=== PATIENT | male | born 1995 | race African-American/Black ===

== ENCOUNTER 2017-10-02 16:11 | Emergency (ER) | payer OTHER, SELFPAY ==
--- NOTE | 2017-10-02 17:49 | EDPHYS ---
Physician Documentation [facility] Name: Lukasz Edwards Jr Age: 21 yrs Sex: Male : 1995 Arrival Date: 10/02/2017 Time: 16:16 Bed 7 Private MD: None, None ED Physician Zach Cordero HPI: 10/02 17:44 This 21 yrs old Black Male presents to ER via Ambulatory with complaints of fatigue . jr8 17:44 Patient stated that he works at [employer] and does a lot of heavy lifting. Stated that jr8 last night felt fatigued and sore everywhere. Has been drinking a lot of water. Stated that he has occasional numbness down both arms. Thinks he over exerted but wants to make sure he is ok . Severity of symptoms: At their worst the symptoms were mild in the emergency department the symptoms are unchanged. The patient has not experienced similar symptoms in the past. The patient has not recently seen a physician. Historical: - Allergies: 16:52 No Known Allergies; aj1 - Home Meds: 16:52 None [Active]; aj1 - PMHx: 16:52 Asthma; enlarged colon; aj1 - PSHx: 16:52 None; aj1 - Immunization history:: Flu vaccine is up to date. - Social history:: Smoking status: Patient uses tobacco products, smokes one pack cigarettes per day. - Ebola Screening: : Patient denies travel to an Ebola-affected area in the 21 days before illness onset. ROS: 17:44 Eyes: Negative for injury, pain, redness, and discharge, ENT: Negative for injury, jr8 pain, and discharge, Neck: Negative for injury, pain, and swelling, Cardiovascular: Negative for chest pain, palpitations, and edema, Respiratory: Negative for shortness of breath, cough, wheezing, and pleuritic chest pain, Abdomen/GI: Negative for abdominal pain, nausea, vomiting, diarrhea, and constipation, Back: Negative for injury and pain, Skin: Negative for injury, rash, and discoloration, Neuro: Negative for headache, weakness, numbness, tingling, and seizure. 17:44 Constitutional: Positive for fatigue. 17:44 MS/extremity: Positive for paresthesias, of the right arm and left arm. Exam: 17:44 Head/Face: Normocephalic, atraumatic. Eyes: Pupils equal round and reactive to light, jr8 extra-ocular motions intact. Lids and lashes normal. Conjunctiva and sclera are non-icteric and not injected. Cornea within normal limits. Periorbital areas with no swelling, redness, or edema. ENT: Nares patent. No nasal discharge, no septal abnormalities noted. Tympanic membranes are normal and external auditory canals are clear. Oropharynx with no redness, swelling, or masses, exudates, or evidence of obstruction, uvula midline. Mucous membranes moist. Neck: Trachea midline, no thyromegaly or masses palpated, and no cervical lymphadenopathy. Supple, full range of motion without nuchal rigidity, or vertebral point tenderness. No Meningismus. Cardiovascular: Regular rate and rhythm with a normal S1 and S2. No gallops, murmurs, or rubs. Normal PMI, no JVD. No pulse deficits. Respiratory: Lungs have equal breath sounds bilaterally, clear to auscultation and percussion. No rales, rhonchi or wheezes noted. No increased work of breathing, no retractions or nasal flaring. Abdomen/GI: Soft, non-tender, with normal bowel sounds. No distension or tympany. No guarding or rebound. No evidence of tenderness throughout. Skin: Warm, dry with normal turgor. Normal color with no rashes, no lesions, and no evidence of cellulitis. MS/ Extremity: Pulses equal, no cyanosis. Neurovascular intact. Full, normal range of motion. Neuro: Awake and alert, GCS 15, oriented to person, place, time, and situation. Cranial nerves II-XII grossly intact. Motor strength 5/5 in all extremities. Sensory grossly intact. Cerebellar exam normal. Normal gait. 17:44 Back: pain, that is moderate, of the left trapezius and right trapezius, ROM is normal, normal spinal alignment noted. Vital Signs: 16:52 BP 144 / 85; Pulse 76; Resp 18; Temp 97.9; Pulse Ox 99% on R/A; Weight 112.04 kg; aj1 Height 5 ft. 4 in. (162.56 cm); Pain 9/10; 17:50 BP 125 / 61; Pulse 73; Resp 17; Pulse Ox 100% on R/A; tw2 16:52 Body Mass Index 42.40 (112.04 kg, 162.56 cm) aj1 MDM: 17:19 Patient medically screened. jr8 17:44 Data reviewed: vital signs, nurses notes, lab test result(s), and as a result, I will jr8 discharge patient. Data interpreted: Pulse oximetry: on room air is 99 %. Interpretation: normal. Counseling: I had a detailed discussion with the patient and/or guardian regarding: the historical points, exam findings, and any diagnostic results supporting the discharge/admit diagnosis, lab results, the need for outpatient follow up, a family practitioner, to return to the emergency department if symptoms worsen or persist or if there are any questions or concerns that arise at home. ED course: Patient did not want blood work done. Ran urine to make sure there was not blood in there to indicate myoglobin and rhabdo. All was negative. Will send home on muscle relaxant and ibuprofen to help with muscle pain . 10/02 17:52 Order name: Urine Dipstick--Ancillary (enter results) [facility] 10/02 17:44 Order name: Urine Dipstick-Ancillary (obtain specimen); Complete Time: 17:45 jr Administered Medications: No medications were administered Disposition: 10/02/17 17:48 Discharged to Home. Impression: Muscle spasm of back. - Condition is Stable. - Discharge Instructions: Back Exercises, Llkj-yx-Spds, Heat Therapy. - Prescriptions for Ibuprofen 800 mg Oral Tablet - take 1 tablet by ORAL route every 12 hours As needed take with food; 20 tablet. Cyclobenzaprine 10 mg Oral Tablet - take 1 tablet by ORAL route every 8 hours As needed; 30 tablet. - Medication Reconciliation Form, Thank You Letter, Antibiotic Education, Prescription Opioid Use, Work release form form. - Follow up: Private Physician; When: 5 - 6 days; Reason: Recheck today's complaints, Continuance of care, Re-evaluation by your physician. - Problem is new. - Symptoms have improved. Addendum: 10/04/2017 14:47 Co-signature as Attending Physician, Zach Cordero MD I agree with the assessment and w a plan of care. Signatures: Dispatcher [employer] EDW[facility] Cindy Davidson RN RN aj1 Hemal Brandon PA PA jr8 Nolvia Garrison RN RN tw2 Zach Cordero MD MD co Corrections: (The following items were deleted from the chart) 10/02 17:55 17:48 10/02/2017 17:48 Discharged to Home. Impression: Muscle spasm of back. Condition tw2 is Stable. Forms are Work release form, Medication Reconciliation Form, Thank You Letter, Antibiotic Education, Prescription Opioid Use. Follow up: Private Physician; When: 5 - 6 days; Reason: Recheck today's complaints, Continuance of care, Re-evaluation by your physician. Problem is new. Symptoms have improved. jr8
--- NOTE | 2017-10-02 17:49 | ER ---
Nurse's Notes [facility] Name: Lukasz Edwards Jr Age: 21 yrs Sex: Male : 1995 Arrival Date: 10/02/2017 Time: 16:16 Bed 7 Private MD: None, None Diagnosis: Muscle spasm of back Presentation: 10/02 16:49 Presenting complaint: Patient states: "I've been having body aches, sweating and aj1 diarrhea since last night and both of my hands have been going numb" Reports fever last night,nausea, denies vomiting. Transition of care: patient was not received from another setting of care. Onset of symptoms was October 01, 2017. Risk Assessment: Do you want to hurt yourself or someone else? Patient reports no desire to harm self or others. Initial Sepsis Screen: Does the patient meet any 2 criteria? No. Patient's initial sepsis screen is negative. Does the patient have a suspected source of infection? No. Patient's initial sepsis screen is negative. Care prior to arrival: None. 16:49 Method Of Arrival: [facility] 16:49 Acuity: CHELA 4 aj1 Triage Assessment: 16:52 General: Appears in no apparent distress. uncomfortable, Behavior is calm, cooperative, aj1 appropriate for age. Pain: Complains of pain in generalized body aches Pain does not radiate. Pain currently is 9 out of 10 on a pain scale. Quality of pain is described as aching. Derm: Skin is normal. Historical: - Allergies: 16:52 No Known Allergies; aj1 - Home Meds: 16:52 None [Active]; aj1 - PMHx: 16:52 Asthma; enlarged colon; aj1 - PSHx: 16:52 None; aj1 - Immunization history:: Flu vaccine is up to date. - Social history:: Smoking status: Patient uses tobacco products, smokes one pack cigarettes per day. - Ebola Screening: : Patient denies travel to an Ebola-affected area in the 21 days before illness onset. Screenin:43 Abuse screen: Denies threats or abuse. Nutritional screening: No deficits noted. tw2 Tuberculosis screening: No symptoms or risk factors identified. Fall Risk None identified. Assessment: 17:39 General: Appears in no apparent distress. Pain: Denies pain. Neuro: Level of tw2 Consciousness is awake, alert, obeys commands, Oriented to person, place, time, situation. Cardiovascular: Denies chest pain, shortness of breath, Heart tones S1 S2 Patient's skin is warm and dry. Respiratory: Airway is patent Respiratory effort is even, unlabored, Respiratory pattern is regular, symmetrical, Breath sounds are clear bilaterally. GI: Abdomen is round non-distended, obese, Bowel sounds present X 4 quads. Reports diarrhea. : No signs and/or symptoms were reported regarding the genitourinary system. EENT: No signs and/or symptoms were reported regarding the EENT system. Derm: Skin is intact, is healthy with good turgor. Musculoskeletal: Range of motion: intact in all extremities. 17:50 Reassessment: Patient appears in no apparent distress at this time. No changes from tw2 previously documented assessment. Patient and/or family updated on plan of care and expected duration. Pain level reassessed. Patient is alert, oriented x 3, equal unlabored respirations, skin warm/dry/pink. Vital Signs: 16:52 BP 144 / 85; Pulse 76; Resp 18; Temp 97.9; Pulse Ox 99% on R/A; Weight 112.04 kg; aj1 Height 5 ft. 4 in. (162.56 cm); Pain 9/10; 17:50 BP 125 / 61; Pulse 73; Resp 17; Pulse Ox 100% on R/A; tw2 16:52 Body Mass Index 42.40 (112.04 kg, 162.56 cm) aj1 ED Course: 16:16 Patient arrived in ED. sb2 16:16 None, None is Private Physician. sb2 16:52 Triage completed. aj1 16:52 Arm band placed on Patient placed in waiting room, Patient notified of wait time. aj1 17:19 Hemal Brandon PA is PHCP. jr8 17:19 Zach Cordero MD is Attending Physician. jr8 17:38 Nolvia Garrison, MAISHA is Primary Nurse. tw2 17:40 Bed in low position. Call light in reach. Pulse ox on. NIBP on. tw2 17:43 No provider procedures requiring assistance completed. tw2 17:55 Patient did not have IV access during this emergency room visit. tw2 Administered Medications: No medications were administered Outcome: 17:48 Discharge ordered by . jr8 17:54 Discharged to home ambulatory, with significant other. tw2 17:54 Condition: stable 17:54 Discharge instructions given to patient, significant other, Instructed on discharge instructions, follow up and referral plans. no drinking with medication, no driving heavy equipment, medication usage, Demonstrated understanding of instructions, follow-up care, medications, Prescriptions given X 2. 17:55 Patient left the ED. tw2 Signatures: Cindy Davidson RN RN aj1 Hemal Brandon PA PA jr8 Nolvia Garrison RN RN tw2 Wendi Olsen sb2
[2017-10-02 17:59] LABS: Urine Blood NEGATIVE (NEG); Urine Glucose NEGATIVE (NEG); Urine Protein NEGATIVE (NEG)
== END 2017-10-02 17:55 | disposition home or self-care (01) ==
LOC: ER 16:11
DX: M62.830 Muscle spasm of back (principal); J45.909 Unspecified asthma, uncomplicated; F17.210 Nicotine dependence, cigarettes, uncomplicated
CPT/HCPCS: 81003; 99283

== ENCOUNTER 2018-01-08 21:30 | Emergency (ER) | payer SELFPAY ==
[2018-01-08] MEDS ORDERED: DEXAMETHASONE 4 MG TAB ONE (22:37)
[2018-01-08] MEDS ORDERED: ALBUTEROL 2.5 MG/3 ML NEB SOL ONE (22:38)
--- NOTE | 2018-01-08 23:04 | EDPHYS ---
Physician Documentation [facility] Name: Lukasz Edwards Jr Age: 22 yrs Sex: Male : 1995 Arrival Date: 01/08/2018 Time: 21:33 Bed 4 Private MD: Jacquelin Felder H ED Physician Amos Monet HPI: 01/08 22:32 This 22 yrs old Black Male presents to ER via Ambulatory with complaints of Cough, snw Breathing Difficulty. 22:32 The patient or guardian reports airway noise, cough, difficulty breathing. Onset: The snw symptoms/episode began/occurred suddenly, last night. Severity of symptoms: At their worst the symptoms were moderate. Modifying factors: The symptoms are alleviated by nothing, the symptoms are aggravated by exertion. Associated signs and symptoms: The patient has no apparent associated signs or symptoms. history of asthma as a child, no bronchodilator use as an adult. The patient has not recently seen a physician. Historical: - Allergies: 21:48 No Known Allergies; aj1 - Home Meds: 21:48 None [Active]; aj1 - PMHx: 21:48 Asthma; enlarged colon; aj1 - PSHx: 21:48 None; aj1 - Immunization history:: Flu vaccine is up to date. - Social history:: Smoking status: Patient uses tobacco products, smokes one-half pack cigarettes per day. - Ebola Screening: : Patient denies travel to an Ebola-affected area in the 21 days before illness onset. ROS: 22:31 Constitutional: Negative for fever, chills, and weight loss, Eyes: Negative for injury, snw pain, redness, and discharge, ENT: Negative for injury, pain, and discharge, Neck: Negative for injury, pain, and swelling, Cardiovascular: Negative for chest pain, palpitations, and edema, Abdomen/GI: Negative for abdominal pain, nausea, vomiting, diarrhea, and constipation, Back: Negative for injury and pain, : Negative for injury, bleeding, discharge, and swelling, MS/Extremity: Negative for injury and deformity, Skin: Negative for injury, rash, and discoloration, Neuro: Negative for headache, weakness, numbness, tingling, and seizure, Psych: Negative for depression, anxiety, suicide ideation, homicidal ideation, and hallucinations. 22:31 Respiratory: Positive for cough, dyspnea on exertion, shortness of breath. Exam: 22:30 Constitutional: This is a well developed, obese patient who is awake, alert, and in no snw acute distress. Head/Face: Normocephalic, atraumatic. Eyes: Pupils equal round and reactive to light, extra-ocular motions intact. Lids and lashes normal. Conjunctiva and sclera are non-icteric and not injected. Cornea within normal limits. Periorbital areas with no swelling, redness, or edema. ENT: Nares patent. No nasal discharge, no septal abnormalities noted. Tympanic membranes are normal and external auditory canals are clear. Oropharynx with no redness, swelling, or masses, exudates, or evidence of obstruction, uvula midline. Mucous membranes moist. Neck: Trachea midline, no thyromegaly or masses palpated, and no cervical lymphadenopathy. Supple, full range of motion without nuchal rigidity, or vertebral point tenderness. No Meningismus. Chest/axilla: Normal chest wall appearance and motion. Nontender with no deformity. No lesions are appreciated. Cardiovascular: tachycardic rate and rhythm with a normal S1 and S2. No gallops, murmurs, or rubs. Normal PMI, no JVD. No pulse deficits. Abdomen/GI: Soft, non-tender, with normal bowel sounds. No distension or tympany. No guarding or rebound. No evidence of tenderness throughout. Back: No spinal tenderness. No costovertebral tenderness. Full range of motion. Skin: Warm, dry with normal turgor. Normal color with no rashes, no lesions, and no evidence of cellulitis. MS/ Extremity: Pulses equal, no cyanosis. Neurovascular intact. Full, normal range of motion. Neuro: Awake and alert, GCS 15, oriented to person, place, time, and situation. Cranial nerves II-XII grossly intact. Motor strength 5/5 in all extremities. Sensory grossly intact. Cerebellar exam normal. Normal gait. 22:30 Respiratory: the patient does not display signs of respiratory distress, Respirations: shallow respirations, tachypnea, Breath sounds: wheezing: expiratory that is moderate, is heard diffusely, tight cough. Vital Signs: 21:48 BP 162 / 82; Pulse 102; Resp 20; Temp 99.2(O); Pulse Ox 96% on R/A; Weight 120.2 kg aj1 (R); Height 5 ft. 4 in. (162.56 cm) (R); Pain 0/10; 22:22 BP 160 / 87; Pulse 110; Resp 18 S; Pulse Ox 96% on R/A; bb 23:05 BP 142 / 77; Pulse 97; Resp 18 S; Pulse Ox 97% on R/A; bb 21:48 Body Mass Index 45.49 (120.20 kg, 162.56 cm) aj1 MDM: 22:19 Patient medically screened. snw 23:07 Data reviewed: vital signs, nurses notes. Data interpreted: Pulse oximetry: on room air snw is 97 %. Interpretation: normal. Counseling: I had a detailed discussion with the patient and/or guardian regarding: the historical points, exam findings, and any diagnostic results supporting the discharge/admit diagnosis, the presence of at least one elevated blood pressure reading (>120/80) during this emergency department visit, the need for outpatient follow up, to return to the emergency department if symptoms worsen or persist or if there are any questions or concerns that arise at home. Response to treatment: the patient's symptoms have markedly improved after treatment. Special discussion: I have referred the patient to see his PCP for further evaluation of high blood pressure. Based on the history and exam findings, there is no indication for further emergent testing or inpatient evaluation. I discussed with the patient/guardian the need to see the primary care provider for further evaluation of the symptoms. Administered Medications: 22:30 Drug: Decadron 8 mg Route: PO; cc3 23:16 Follow up: Response: Marked relief of symptoms bb 22:35 Drug: Albuterol 2.5 mg Route: Inhalation; cc3 23:16 Follow up: Response: Marked relief of symptoms bb Disposition: 01/08/18 23:04 Discharged to Home. Impression: Asthma. - Condition is Stable. - Discharge Instructions: Asthma, Adult. - Prescriptions for Prednisone 20 mg Oral Tablet - take 2 tablet by ORAL route once daily for 5 days; 10 tablet. Albuterol Sulfate 90 mcg/actuation - inhale 1-2 puff by INHALATION route every 4-6 hours; 1 Inhaler. - Medication Reconciliation Form, Thank You Letter, Antibiotic Education, Prescription Opioid Use form. Addendum: 01/11/2018 17:27 Co-signature as Attending Physician, Amos Monet MD. g s Signatures: Cindy Davidson, RN RN aj1 Alicja Escobedo, FLAME BRAZING MACHINE OPERATOR-C FLAME BRAZING MACHINE OPERATOR-Csnw Chitra Huff, RN Amos Elena MD MD gs Cordel, Charlene cc3 Corrections: (The following items were deleted from the chart) 01/08 23:16 23:04 01/08/2018 23:04 Discharged to Home. Impression: Asthma. Condition is Stable. bb Forms are Medication Reconciliation Form, Thank You Letter, Antibiotic Education, Prescription Opioid Use. Follow up: Private Physician; When: 1 - 2 days; Reason: Recheck today's complaints, Continuance of care, Re-evaluation by your physician. Follow up: Emergency Department; When: As needed; Reason: Worsening of condition. snw
--- NOTE | 2018-01-08 23:04 | ER ---
Nurse's Notes [facility] Name: Lukasz Edwards Jr Age: 22 yrs Sex: Male : 1995 Arrival Date: 01/08/2018 Time: 21:33 Bed 4 Private MD: Jacquelin Felder H Diagnosis: Asthma Presentation: 01/08 21:47 Presenting complaint: Patient states: He has been having a productive cough since aj1 Saturday. Reports shortness of breath on exertion. Denies fever, chills. Denies N/V/D. Transition of care: patient was not received from another setting of care. Onset of symptoms was December 2017. Risk Assessment: Do you want to hurt yourself or someone else? Patient reports no desire to harm self or others. Initial Sepsis Screen: Does the patient meet any 2 criteria? HR > 90 bpm. No. Patient's initial sepsis screen is negative. Does the patient have a suspected source of infection? Yes: Productive cough/pneumonia. Care prior to arrival: None. 21:47 Method Of Arrival: Ambulatory aj1 21:47 Acuity: CHELA 4 aj1 Triage Assessment: 21:48 General: Appears in no apparent distress. comfortable, Behavior is calm, cooperative, aj1 appropriate for age. Pain: Denies pain. EENT: Reports nasal congestion nasal discharge. Neuro: Level of Consciousness is awake, alert, obeys commands, Speech is normal. Cardiovascular: Patient's skin is warm and dry. Respiratory: Reports shortness of breath on exertion Airway is patent Respiratory effort is even, unlabored, Respiratory pattern is regular, symmetrical, Breath sounds are clear bilaterally. Onset: The symptoms/episode began/occurred 3 days ago, the patient has mild shortness of breath. Historical: - Allergies: 21:48 No Known Allergies; aj1 - Home Meds: 21:48 None [Active]; aj1 - PMHx: 21:48 Asthma; enlarged colon; aj1 - PSHx: 21:48 None; aj1 - Immunization history:: Flu vaccine is up to date. - Social history:: Smoking status: Patient uses tobacco products, smokes one-half pack cigarettes per day. - Ebola Screening: : Patient denies travel to an Ebola-affected area in the 21 days before illness onset. Screenin:22 Abuse screen: Denies threats or abuse. Nutritional screening: No deficits noted. bb Tuberculosis screening: No symptoms or risk factors identified. Fall Risk None identified. Assessment: 22:22 General: Appears in no apparent distress. obese, Behavior is calm, cooperative. Neuro: bb Level of Consciousness is awake, alert, obeys commands, Oriented to person, place, time, situation. Cardiovascular: Heart tones S1 S2 present Capillary refill < 3 seconds Patient's skin is warm and dry. Rhythm is sinus tachycardia. Respiratory: Reports shortness of breath cough that is persistent Airway is patent Respiratory effort is even, unlabored, Respiratory pattern is regular, Breath sounds are clear bilaterally. GI: No signs and/or symptoms were reported involving the gastrointestinal system. Derm: Skin is dry, Skin is normal, Skin temperature is warm. Musculoskeletal: Circulation, motion, and sensation intact. 23:04 Reassessment: Patient and/or family updated on plan of care and expected duration. Pain bb level reassessed. Patient is alert, oriented x 3, equal unlabored respirations, skin warm/dry/pink. pt states he is feeling better after neb tx bilateral breath sounds clear. Vital Signs: 21:48 BP 162 / 82; Pulse 102; Resp 20; Temp 99.2(O); Pulse Ox 96% on R/A; Weight 120.2 kg aj1 (R); Height 5 ft. 4 in. (162.56 cm) (R); Pain 0/10; 22:22 BP 160 / 87; Pulse 110; Resp 18 S; Pulse Ox 96% on R/A; bb 23:05 BP 142 / 77; Pulse 97; Resp 18 S; Pulse Ox 97% on R/A; bb 21:48 Body Mass Index 45.49 (120.20 kg, 162.56 cm) aj1 ED Course: 21:33 Patient arrived in ED. es 21:34 Jacquelin Felder MD is Private Physician. es 21:48 Triage completed. aj1 21:48 Arm band placed on Patient placed in waiting room. aj1 22:18 Alic[facility] Escobedo [facility]C [facility] snw 22:18 Amos Monet MD is Attending Physician. snw 22:22 Patient has correct armband on for positive identification. Bed in low position. Call bb light in reach. Side rails up X 1. Adult w/ patient. Pulse ox on. NIBP on. 23:04 Chitra Huff, RN is Primary Nurse. bb 23:15 No provider procedures requiring assistance completed. Patient did not have IV access bb during this emergency room visit. Administered Medications: 22:30 Drug: Decadron 8 mg Route: PO; cc3 23:16 Follow up: Response: Marked relief of symptoms bb 22:35 Drug: Albuterol 2.5 mg Route: Inhalation; cc3 23:16 Follow up: Response: Marked relief of symptoms bb Outcome: 23:04 Discharge ordered by . patricio 23:15 Discharged to home ambulatory, with family. bb 23:15 Condition: stable 23:15 Discharge instructions given to patient, Instructed on discharge instructions, follow up and referral plans. medication usage, Demonstrated understanding of instructions, follow-up care, medications, Prescriptions given X 2. 23:16 Patient left the ED. bb Signatures: Cindy Davidson, RN RN aj1 Alicja Escobedo, WINDOW CUTTER-C WINDOW CUTTER-Csnw Luzma Jseus Brenda, RN RN bb Julia Mahajan cc3
== END 2018-01-08 23:16 | disposition home or self-care (01) ==
LOC: ER 21:30
DX: J45.909 Unspecified asthma, uncomplicated (principal); F17.210 Nicotine dependence, cigarettes, uncomplicated
CPT/HCPCS: 99284

== ENCOUNTER 2018-01-21 08:21 | Emergency (ER) | payer SELFPAY ==
--- NOTE | 2018-01-21 08:57 | ER ---
Nurse's Notes [facility] Name: Lukasz Edwards Jr Age: 22 yrs Sex: Male : 1995 Arrival Date: 01/21/2018 Time: 08:25 Bed 18 Private MD: Diagnosis: Cellulitis and abscess of mouth Presentation: 01/21 08:40 Presenting complaint: Patient states: WISDOM TEETH PAIN x5 DAYS. Transition of care: bp patient was not received from another setting of care. Onset of symptoms was January 16, 2018. Risk Assessment: Do you want to hurt yourself or someone else? Patient reports no desire to harm self or others. Initial Sepsis Screen: Does the patient meet any 2 criteria? No. Patient's initial sepsis screen is negative. Does the patient have a suspected source of infection? No. Patient's initial sepsis screen is negative. Care prior to arrival: None. 08:40 Method Of Arrival: Ambulatory bp 08:40 Acuity: CHELA 5 bp Triage Assessment: 08:41 General: Appears in no apparent distress. uncomfortable, obese, Behavior is calm, bp cooperative, appropriate for age. Pain: Complains of pain in mouth. Historical: - Allergies: 08:41 No Known Allergies; bp - Home Meds: 08:41 None [Active]; bp - PMHx: 08:41 Asthma; enlarged colon; bp - Immunization history:: Adult Immunizations up to date. - Social history:: Smoking status: Patient uses tobacco products, smokes one pack cigarettes per day. - Ebola Screening: : Patient negative for fever greater than or equal to 101.5 degrees Fahrenheit, and additional compatible Ebola Virus Disease symptoms Patient denies exposure to infectious person Patient denies travel to an Ebola-affected area in the 21 days before illness onset No symptoms or risks identified at this time. Screenin:00 Abuse screen: Denies threats or abuse. Denies injuries from another. Nutritional ch screening: No deficits noted. Tuberculosis screening: No symptoms or risk factors identified. Fall Risk None identified. Assessment: 09:00 General: Appears in no apparent distress. comfortable, Behavior is calm, cooperative, ch appropriate for age. 09:00 Pain: Complains of pain in right buccal mucosa and left buccal mucosa and mouth Pain ch currently is 7 out of 10 on a pain scale. Pain began gradually. Neuro: No deficits noted. Level of Consciousness is awake, alert, obeys commands, Oriented to person, place, time, situation. Respiratory: No deficits noted. GI: No signs and/or symptoms were reported involving the gastrointestinal system. EENT: Oral mucosa is moist. pt has slight swelling of cristiana cheeks. Reports pain in mouth, right jaw and left jaw. Derm: No signs and/or symptoms reported regarding the dermatologic system. Musculoskeletal: No signs and/or symptoms reported regarding the musculoskeletal system. Capillary refill < 3 seconds, in bilateral fingers. toes. 10:00 Reassessment: Patient appears in no apparent distress at this time. Patient and/or ch family updated on plan of care and expected duration. Pain level reassessed. Patient is alert, oriented x 3, equal unlabored respirations, skin warm/dry/pink. 12:07 Pain:. ch Vital Signs: 08:41 BP 125 / 68; Pulse 68; Resp 16; Temp 97.6; Pulse Ox 100% ; Weight 129.27 kg; Height 5 bp ft. 4 in. (162.56 cm); 10:00 BP 136 / 68; Pulse 71; Resp 16; Temp 98.3; Pulse Ox 99% on R/A; Pain 7/10; ch 08:41 Body Mass Index 48.92 (129.27 kg, 162.56 cm) bp ED Course: 08:25 Patient arrived in ED. rg4 08:40 Triage completed. bp 08:41 Arm band placed on. bp 08:45 Mary Ann Tom FNP-C is PHCP. kb 08:45 Amos Monet MD is Attending Physician. kb 09:00 No apparent distress. Resting quietly. ch 09:00 Patient has correct armband on for positive identification. Bed in low position. Call light in reach. Adult w/ patient. 09:00 No provider procedures requiring assistance completed. Patient did not have IV access ch during this emergency room visit. 09:49 Karuna Bailey, RN is Primary Nurse. Administered Medications: 09:50 Drug: TORadol 60 mg Route: IM; Site: right gluteus; ch 10:05 Follow up: Response: No adverse reaction 09:50 Drug: Clindamycin 300 mg Route: PO; ch 10:05 Follow up: Response: No adverse reaction ch Outcome: 08:56 Discharge ordered by . kb 10:00 Discharged to home ambulatory, with family. 10:00 Condition: improved 10:00 Discharge instructions given to patient, Instructed on discharge instructions, follow up and referral plans. medication usage, Demonstrated understanding of instructions, follow-up care, medications, Prescriptions given X 1. 10:09 Patient left the ED. Signatures: Mary Ann Tom, CARO-Karuna Renteria RN RN Dayna Knott 4 Wei Edward RN RN bp Corrections: (The following items were deleted from the chart) 12:08 12:07 General: Appears in no apparent distress. comfortable, Behavior is calm, ch cooperative, appropriate for age, ch
--- NOTE | 2018-01-21 08:57 | EDPHYS ---
Physician Documentation [facility] Name: Lukasz Edwards Jr Age: 22 yrs Sex: Male : 1995 Arrival Date: 01/21/2018 Time: 08:25 Bed 18 Private MD: ED Physician Amos Monet HPI: 01/21 08:55 This 22 yrs old Black Male presents to ER via Ambulatory with complaints of Jaw Pain, kb Facial Swelling. 08:55 The problem is located in the left buccal mucosa and right buccal mucosa. kb 08:55 The patient presents with pain, redness, swelling. Onset: The symptoms/episode kb began/occurred 5 day(s) ago. Duration: The symptoms are continuous. Modifying factors: The symptoms are alleviated by nothing, the symptoms are aggravated by nothing. Associated signs and symptoms: Pertinent positives: pain, redness in area, swelling, Pertinent negatives: anorexia, chills, dysphagia, fever, inability to eat, nausea, vomiting. Severity of symptoms: At their worst the symptoms were moderate, in the emergency department the symptoms are unchanged. The patient has not experienced similar symptoms in the past. The patient has not recently seen a physician. Historical: - Allergies: 08:41 No Known Allergies; bp - Home Meds: 08:41 None [Active]; bp - PMHx: 08:41 Asthma; enlarged colon; bp - Immunization history:: Adult Immunizations up to date. - Social history:: Smoking status: Patient uses tobacco products, smokes one pack cigarettes per day. - Ebola Screening: : Patient negative for fever greater than or equal to 101.5 degrees Fahrenheit, and additional compatible Ebola Virus Disease symptoms Patient denies exposure to infectious person Patient denies travel to an Ebola-affected area in the 21 days before illness onset No symptoms or risks identified at this time. ROS: 08:54 Constitutional: Negative for fever, chills, and weight loss, Cardiovascular: Negative kb for chest pain, palpitations, and edema, Respiratory: Negative for shortness of breath, cough, wheezing, and pleuritic chest pain, Abdomen/GI: Negative for abdominal pain, nausea, vomiting, diarrhea, and constipation, MS/Extremity: Negative for injury and deformity, Skin: Negative for injury, rash, and discoloration, Neuro: Negative for headache, weakness, numbness, tingling, and seizure. 08:54 ENT: Positive for dental pain, Gum pain Exam: 08:54 Constitutional: This is a well developed, well nourished patient who is awake, alert, kb and in no acute distress. Head/Face: Normocephalic, atraumatic. Chest/axilla: Normal chest wall appearance and motion. Nontender with no deformity. No lesions are appreciated. Cardiovascular: Regular rate and rhythm with a normal S1 and S2. No gallops, murmurs, or rubs. Normal PMI, no JVD. No pulse deficits. Respiratory: Lungs have equal breath sounds bilaterally, clear to auscultation and percussion. No rales, rhonchi or wheezes noted. No increased work of breathing, no retractions or nasal flaring. Abdomen/GI: Soft, non-tender, with normal bowel sounds. No distension or tympany. No guarding or rebound. No evidence of tenderness throughout. Skin: Warm, dry with normal turgor. Normal color with no rashes, no lesions, and no evidence of cellulitis. MS/ Extremity: Pulses equal, no cyanosis. Neurovascular intact. Full, normal range of motion. Neuro: Awake and alert, GCS 15, oriented to person, place, time, and situation. Cranial nerves II-XII grossly intact. Motor strength 5/5 in all extremities. Sensory grossly intact. Cerebellar exam normal. Normal gait. 08:54 ENT: Dental exam: cellulitis, pain. Vital Signs: 08:41 BP 125 / 68; Pulse 68; Resp 16; Temp 97.6; Pulse Ox 100% ; Weight 129.27 kg; Height 5 bp ft. 4 in. (162.56 cm); 10:00 BP 136 / 68; Pulse 71; Resp 16; Temp 98.3; Pulse Ox 99% on R/A; Pain 7/10; ch 08:41 Body Mass Index 48.92 (129.27 kg, 162.56 cm) bp MDM: 08:46 Patient medically screened. kb 08:54 Data reviewed: vital signs, nurses notes. Data interpreted: Pulse oximetry: on room air kb is 100 %. Interpretation: normal. Counseling: I had a detailed discussion with the patient and/or guardian regarding: the historical points, exam findings, and any diagnostic results supporting the discharge/admit diagnosis, the need for outpatient follow up, a dentist, to return to the emergency department if symptoms worsen or persist or if there are any questions or concerns that arise at home. Administered Medications: 09:50 Drug: TORadol 60 mg Route: IM; Site: right gluteus; 10:05 Follow up: Response: No adverse reaction 09:50 Drug: Clindamycin 300 mg Route: PO; 10:05 Follow up: Response: No adverse reaction Disposition: 01/21/18 08:56 Discharged to Home. Impression: Cellulitis and abscess of mouth. - Condition is Stable. - Discharge Instructions: Dental Pain, [id number], Dental Abscess, [id number]. - Prescriptions for Clindamycin HCl 300 mg Oral Capsule - take 1 capsule by ORAL route every 6 hours for 7 days; 28 capsule. - Medication Reconciliation Form, Thank You Letter, Antibiotic Education, Prescription Opioid Use, Work release form form. - Follow up: Emergency Department; When: As needed; Reason: Worsening of condition. Follow up: Private Physician; When: 2 - 3 days; Reason: Recheck today's complaints, Continuance of care, Re-evaluation by your physician. Addendum: 01/22/2018 18:05 Co-signature as Attending Physician, Amos Monet MD. g s Signatures: Mary Ann Tom, HEAD LOADER-C HEAD LOADER-Karuna Boothe RN RN Amos Monet MD MD Wei Edward RN RN bp Corrections: (The following items were deleted from the chart) 01/21 10:09 08:56 01/21/2018 08:56 Discharged to Home. Impression: Cellulitis and abscess of mouth. Condition is Stable. Forms are Medication Reconciliation Form, Thank You Letter, Antibiotic Education, Prescription Opioid Use. Follow up: Emergency Department; When: As needed; Reason: Worsening of condition. Follow up: Private Physician; When: 2 - 3 days; Reason: Recheck today's complaints, Continuance of care, Re-evaluation by your physician. kb
[2018-01-21] MEDS ORDERED: KETOROLAC 30 MG/ML INJ ONE (09:58)
[2018-01-21] MEDS ORDERED: CLINDAMYCIN HCL 150 MG CAP ONE (09:58)
== END 2018-01-21 10:09 | disposition home or self-care (01) ==
LOC: ER 08:21
DX: K12.2 Cellulitis and abscess of mouth (principal); F17.210 Nicotine dependence, cigarettes, uncomplicated
CPT/HCPCS: 96372; 99283

== ENCOUNTER 2023-03-18 06:15 | Emergency (ER) | payer SELFPAY ==
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
[2023-03-18 10:48] VITALS: TEMP 98.7
[2023-03-18 10:52] VITALS: BP 134/93; O2SAT 97
== END 2023-03-18 10:43 | disposition home or self-care (01) ==
LOC: ER 06:15
DX: S01.511A Laceration without foreign body of lip, initial encounter (principal); M54.2 Cervicalgia; M25.511 Pain in right shoulder
CPT/HCPCS: 70450; 71250; 72125; 93005; 99284

== ENCOUNTER → 2023-05-01 | Emergency (ER) | payer SELFPAY ==
[~2023-05-01] MED LIST: KETOROLAC 30 MG/ML INJ ONE; MAGNES/ALUMIN/SIMET 30ML UCUP ONE
[2023-05-01 12:14] LABS: Absolute Lymphocytes (CBC) 1.4 K/uL (0.7-4.9); Hematocrit 44.9 % (39.6-49.0); Lymphocytes % 20.9 % (15.3-44.8); MPV 7.4 fL (7.6-11.3); Platelets 282 thou/uL (152-406)
--- NOTE | 2023-05-01 12:17 | RAD REPORT ---
EXAM DESCRIPTION: [place] Single View05/01/2023 12:04 pm CLINICAL HISTORY: CHEST PAIN COMPARISON: Chest Single View dated 06/13/2016; Chest Single View dated 06/11/2016; Chest Single View d ated 06/10/2016 TECHNIQUE: Portable AP view of the chest. FINDINGS: The lungs are clear. No pneumothorax or effusion. The cardiomediastinal contours are unch anged. IMPRESSION: No acute cardiopulmonary process.
[2023-05-01 12:33] LABS: Albumin 3.6 g/dL (3.4-5.0); Bilirubin Direct 0.2 mg/dL (0-0.2); Bilirubin Indirect, Calculated 0.3 mg/dL (0.2-0.8); Bilirubin Total 0.5 mg/dL (0.2-1.0); Magnesium 1.9 mg/dL (1.6-2.4); Potassium 3.7 mEq/L (3.5-5.1); Protein, Total 7.3 g/dL (6.4-8.2); SARS-CoV-2 Antigen Rapid Res Negative (Negative); Troponin High Sensitivity 6.6 pg/mL (<58.9)
--- NOTE | 2023-05-01 14:00 | EDPHYS ---
Physician Documentation [facility] Name: Lukasz Edwards Jr Age: 27 yrs Sex: Male : 1995 Arrival Date: 05/01/2023 Time: 11:19 Bed 14 Private MD: ED Physician Sergo Hammond Historical: - Allergies: 05/01 11:28 No Known Allergies; ll1 - PMHx: 11:28 Asthma; enlarged colon; ll1 - PSHx: 11:28 None; ll1 - Immunization history:: Adult Immunizations up to date. - Social history:: Smoking status: Patient reports the use of cigarette tobacco products, smokes one-half pack cigarettes per day, Reported history of juuling and/or vaping. Vital Signs: 11:35 BP 161 / 106; Pulse 78; Resp 18; Temp 98(TE); Pulse Ox 99% on R/A; Weight 145.15 kg; ll1 Height 5 ft. 3 in. ; Pain 3/10; 13:50 BP 155 / 93; Pulse 75; Resp 18; Pulse Ox 100% on R/A; ld1 11:35 Body Mass Index 56.69 (145.15 kg, 160.02 cm) ll1 11:35 Pain Scale: Adult ll1 MDM: 11:36 Patient medically screened. rt 05/01 11:42 Order name: Basic Metabolic Panel; Complete Time: 13:09 rt 05/01 11:42 Order name: CBC with Diff; Complete Time: 12:21 rt 05/01 11:42 Order name: LFT's; Complete Time: 13: rt 05/01 11:42 Order name: Magnesium; Complete Time: 13: rt 05/01 11:42 Order name: Troponin HS; Complete Time: 13:09 rt 05/01 11:42 Order name: Influenza Screen (a \T\ B); Complete Time: 13:09 rt 05/01 11:42 Order name: SARS RAPID; Complete Time: 13:09 rt 05/01 11:42 Order name: Lipase; Complete Time: 13:09 rt 05/01 11:42 Order name: XRAY Chest (1 view); Complete Time: 12:21 rt 05/01 11:42 Order name: EKG; Complete Time: 11:42 rt 05/01 11:42 Order name: Cardiac monitoring; Complete Time: 12:01 rt 05/01 11:42 Order name: EKG - Nurse/Tech; Complete Time: 12:01 rt 05/01 11:42 Order name: IV Saline Lock; Complete Time: 12:01 rt 05/01 11:42 Order name: Labs collected and sent; Complete Time: 12:01 rt 05/01 11:42 Order name: O2 Per Protocol; Complete Time: 12:01 rt 05/01 11:42 Order name: O2 Sat Monitoring; Complete Time: 12:01 rt Administered Medications: 12:16 Drug: Alum-Mag Hydroxide-Simeth PO Suspension (200 mg-200 mg-20 mg/5 mL) 30 ml PO once ld1 Route: PO; 12:16 Drug: Ketorolac IVP 15 mg IVP once Route: IVP; Site: left antecubital; ld1 Disposition Summary: 05/01/23 14:00 Discharge Ordered Notes: Location: Home rt Problem: new rt Symptoms: have improved rt Condition: Stable rt Diagnosis - Chest pain, unspecified rt Followup: rt - With: Private Physician - When: 2 - 3 days - Reason: Discharge Instructions: - Discharge Summary Sheet rt - Nonspecific Chest Pain, Adult rt Forms: - Medication Reconciliation Form rt - Thank You Letter rt - Antibiotic Education rt - Prescription Opioid Use rt - Patient Portal Instructions rt - Leadership Thank You Letter rt Signatures: Dispatcher [employer] Simon Julio, RN RN ll1 Oneyda Odell RN RN ld1 Sergo Hammond MD MD rt
--- NOTE | 2023-05-01 14:00 | ER ---
Nurse's Notes [facility] Name: Lukasz Edwards Jr Age: 27 yrs Sex: Male : 1995 Arrival Date: 05/01/2023 Time: 11:19 Bed 14 Private MD: Diagnosis: Chest pain, unspecified Presentation: 05/01 11:35 Chief complaint: Patient states: Slight cough/congestion, body aches, fatigue, CP, ll1 N/V/D started today. Coronavirus screen: Client denies travel out of the [place] in the last 14 days. cough unrelated to allergies, diarrhea, fatigue, headache, muscle pain, nausea. Ebola Screen: Patient denies travel to an Ebola-affected area in the 21 days before illness onset. Initial Sepsis Screen: Does the patient meet any 2 criteria? No. Patient's initial sepsis screen is negative. Does the patient have a suspected source of infection? No. Patient's initial sepsis screen is negative. Risk Assessment: Do you want to hurt yourself or someone else? Patient reports no desire to harm self or others. Onset of symptoms was May 01, 2023. 11:35 Method Of Arrival: Ambulatory ll1 11:35 Acuity: CHELA 3 ll1 Triage Assessment: 11:34 General: Appears uncomfortable, Behavior is calm, cooperative, appropriate for age. ll1 General: Reports feeling ill for fatigue for. Pain: Complains of pain in chest Pain currently is 3 out of 10 on a pain scale. Quality of pain is described as aching, Pain began. Neuro: Reports weakness. Cardiovascular: Reports chest pain. Respiratory: Reports cough that is. GI: Reports diarrhea, nausea. Musculoskeletal: Reports numbness in right arm. Historical: - Allergies: 11:28 No Known Allergies; ll1 - PMHx: 11:28 Asthma; enlarged colon; ll1 - PSHx: 11:28 None; ll1 - Immunization history:: Adult Immunizations up to date. - Social history:: Smoking status: Patient reports the use of cigarette tobacco products, smokes one-half pack cigarettes per day, Reported history of juuling and/or vaping. Screenin:50 [facility] ED Fall Risk Assessment (Adult) History of falling in the last 3 months, ld1 including since admission No falls in past 3 months (0 pts). Abuse screen: Denies threats or abuse. Denies injuries from another. Nutritional screening: No deficits noted. Tuberculosis screening: No symptoms or risk factors identified. Assessment: 13:50 General: Appears in no apparent distress. comfortable, Behavior is calm, cooperative, ld1 appropriate for age. Pain: Complains of pain in right arm and chest Pain does not radiate. Pain currently is 8 out of 10 on a pain scale. Quality of pain is described as throbbing, Pain began suddenly, Is intermittent. Neuro: Level of Consciousness is awake, alert, obeys commands, Oriented to person, place, time, situation. Cardiovascular: Capillary refill < 3 seconds Patient's skin is warm and dry. Rhythm is sinus rhythm. Respiratory: Airway is patent Respiratory effort is even, unlabored. GI: Abdomen is round obese. : No signs and/or symptoms were reported regarding the genitourinary system. EENT: No signs and/or symptoms were reported regarding the EENT system. Derm: No signs and/or symptoms reported regarding the dermatologic system. Musculoskeletal: No signs and/or symptoms reported regarding the musculoskeletal system. Vital Signs: 11:35 BP 161 / 106; Pulse 78; Resp 18; Temp 98(TE); Pulse Ox 99% on R/A; Weight 145.15 kg; ll1 Height 5 ft. 3 in. ; Pain 3/10; 13:50 BP 155 / 93; Pulse 75; Resp 18; Pulse Ox 100% on R/A; ld1 11:35 Body Mass Index 56.69 (145.15 kg, 160.02 cm) ll1 11:35 Pain Scale: Adult ll1 ED Course: 11:21 Patient arrived in ED. mr 11:29 Sergo Hammond MD is Attending Physician. rt 11:34 Arm band placed on Patient placed in an exam room, on a stretcher. ll1 11:37 Triage completed. ll1 12:01 Lipase Sent. bc6 12:01 SARS RAPID Sent. bc6 12:01 Influenza Screen (a \T\ B) Sent. bc6 12:01 Basic Metabolic Panel Sent. bc6 12:01 CBC with Diff Sent. bc6 12:01 LFT's Sent. bc6 12:01 Magnesium Sent. bc6 12:01 Inserted saline lock: 20 gauge in left antecubital area, using aseptic technique. Blood bc6 collected. 12:06 XRAY Chest (1 view) In Process Unspecified. EDMS 12:10 Oneyda Odell, RN is Primary Nurse. ld1 13:50 Patient has correct armband on for positive identification. Placed in gown. Bed in low ld1 position. Call light in reach. Side rails up X2. desk monitor on. Pulse ox on. NIBP on. Door closed. Noise minimized. Warm blanket given. 13:50 No provider procedures requiring assistance completed. Patient maintains SpO2 ld1 saturation greater than 95% on room air. 14:27 IV discontinued, intact, bleeding controlled, No redness/swelling at site. ld1 Administered Medications: 12:16 Drug: Alum-Mag Hydroxide-Simeth PO Suspension (200 mg-200 mg-20 mg/5 mL) 30 ml PO once ld1 Route: PO; 12:16 Drug: Ketorolac IVP 15 mg IVP once Route: IVP; Site: left antecubital; ld1 Medication: 13:50 VIS not applicable for this client. ld1 Outcome: 14:00 Discharge ordered by . rt 14:26 Discharged to home ambulatory, with family, ld1 14:26 Condition: stable 14:26 Discharge instructions given to patient, family, Instructed on discharge instructions, follow up and referral plans. Demonstrated understanding of instructions, follow-up care, 14:27 Patient left the ED. ld1 Signatures: Dispatcher [employer] EDNM Felipa Newman, Reg Reg Simon Parra, RN RN ll1 Oneyda Odell, RN RN ld1 Sergo Hammond MD MD rt Natalia Riley bc6 Corrections: (The following items were deleted from the chart) 11:39 11:35 BP 161 / 106; Pulse 78bpm; Resp 18bpm; Pulse Ox 99% RA; Temp 98.3F; 145.15 kg; ll1 Height 5 ft. 3 in.; BMI: 56.6; Pain 3/10, Adult; ll1
[2023-05-01 15:09] VITALS: TEMP 98
[2023-05-01 15:23] VITALS: BP 155/93; O2SAT 100
== END ==
LOC: ER 11:19
DX: R07.9 Chest pain, unspecified (principal)
CPT/HCPCS: 36415; 71045; 80048; 80076; 83690; 83735; 84484; 85025; 87804; 87811; 93005

== ENCOUNTER 2024-02-08 08:40 | Emergency (ER) | payer SELFPAY ==
--- OUTSIDE RECORDS SUMMARY | 2024-02-08 08:42 | XMS REPORT | Continuity of Care Document ---
Author Name Unknown Address [address] [place] [address] [facility] thconnect Address [address] [place] [address] Care Team Providers Care [employer] Name Role Phone PCP, PATIENT DOES NOT HAVE A Primary Care Physic talita Unavailable Boni CAMEJO Attending Clinician Unavailable Boni CAMEJO Attending Clinician Unavailable Boni Kang Attending Clinician [phone] Problems Condition Name Condition Details Condition Category Status Onset Date Resolution Date Last Treatment Date Treating Clinician Comments Source Right ankle pain Right ankle pain Disease Active 2014-04 00:00: 00 [facility] Allergies, Adverse Reactions, Alerts Allergy Name Allergy Type Status Severity Reaction(s) Onset Date Inactive Date Treating Clinician Comments Source NO KNOWN ALLERGIE S Drug Class Active [facility] Social History Social Habit Start Date Stop Date Quantity Comments [facility] Alcoh[facility] intake 2024-01-03 00:00:00 2024-01-03 00:00:00 0 /d [facility] History of Social function 2024-01-03 00:00:00 2024-01-03 00:00:00 [facility] Sex assigned at 1995 00:00:00 1995 00:00:00 [facility] Smoking Status Start Date Stop Date Source Never smoked tobacco [facility] Medications Ordered Medication Name Filled Medication Name Start Date Stop Date Current Medication? Ordering Clinician Indication Dosage Frequency Signature (SIG) Comments Components Source benzonatate (TESSALON PERLES) capsule 200 mg 01-03 04:00: 00 01-03 03:51 :00 No 200mg 200 mg, Oral, ONCE, 1 dose, On Sat01/03/24 at 2300, Routine [facility] ibuprofen (IBU) tablet 800 mg 01-03 04:00: 00 01-03 03:51 :00 No 800mg 800 mg, Oral, ONCE, 1 dose, On Sat01/03/24 at 2300, RADHA [facility] benzonatate 200 mg capsule 01-02 00:00: 00 Yes [id number] 200mg Take 1 capsule by mouth 3 (three) times daily as needed for Cough for up to 20 doses. [facility] ibuprofen 800 mg tablet 01-02 00:00: 00 Yes [id number] 800mg Take 1 tablet by mouth every 8 (eight) hours as needed for Pain (scale 4-6). [facility] Vital Signs Vital Name Observation Time Observation Value Comments S ource Systolic blood pressure 2024-01-04 05:16:00 157 mm[Hg] [facility] Diastolic blood pressure 2024-01-04 05:16:00 89 mm[Hg] [facility] Heart rate 2024-01-04 05:16:00 99 /min [facility] Body temperature 2024-01-04 05:16:00 37.72 Ragini [facility] Respiratory rate 2024-01-04 05:16:00 22 /min [facility] Oxygen saturation in Arterial blood by Pulse oximetry 2024-01-04 05:16:00 97 /min [facility] Body height 2024-01-04 03:34:00 162.6 cm [facility] Body weight 2024-01-04 03:34:00 155.947 kg [facility] BMI 2024-01-04 03:34:00 59.01 kg/m2 [facility] Procedures Procedure Date / Time Performed Performing Clinicia n Source RAPID STREP SCREEN FOR GROUP A 2024-01-04 03:40:00 Boni Camejo [facility] INFLUENZA A/B RSV COVID NAAT 2024-01-04 03:40:00 Boni Camejo [facility] Encounters Start Date/Time End Date/Time Encounter Type Admission Type Attending [facility] Care Department Encounter ID Source 2024-01-03 22:39:00 2024-01-04 00:21:00 Emergency X Boni CAMEJO K [facility] ERT [id number] [facility] 2024-01-03 22:39:00 2024-01-04 00:21:00 Emergency Boni Camejo [facility] [id number] [facility] 2023-11-29 14:37:53 2023-11-29 14:37:53 Outpatient [facility] [id number] Michael Colon 2023-11-20 16:41:59 2023-11-20 16:41:59 Outpatient [facility] [id number] Michael Colon 2023-11-18 15:34:39 2023-11-18 15:34:39 Outpatient [facility] [id number] Michael Colon 2023-11-13 13:45:27 2023-11-13 13:45:27 Outpatient [facility] [id number] Michael Colon Notes Date/Time Note Provider Source 2024-01-04 00:19:53 Pt given printed and verbal discharge instructions regarding Covid-19, encouraged hydration. Prescriptions provided. Discussed ibuprofen and to take with food to avoid GI distress. Pt verbalized understanding of instructions, pt awake alert oriented, resp reg unlabored, skin w/d, color appropriate for race, moves all ext well,pt encouraged to follow up with pcp. Advised to seek medical attention for new/prolonged/worsening of symptoms. No adverse reaction to meds given in ER noted upon discharge. Awake, alert oriented, resp reg unlabored, skin w/d, pt leaving amb with steady gait, in no apparent distress. [facility] 2024-01-03 22:32:30 Pt arrives ambulatory to ED c/o of body aches, fever, and coughing that began this am. T Viri Resendiz RN [facility]
--- NOTE | 2024-02-08 08:56 | EDPHYS ---
Physician Documentation [facility] Name: Lukasz Edwards Jr Age: 28 yrs Sex: Male : 1995 Arrival Date: 02/08/2024 Time: 08:40 Bed 8 Private MD: ED Physician Gagandeep Hamm HPI: 02/07 08:52 This 28 yrs old Black Male presents to ER via Unassigned with complaints of Penile sherita Discharge. 08:52 The patient presents with urinary symptoms, dysuria. Onset: The symptoms/episode sherita began/occurred 2 day(s) ago. Modifying factors: The symptoms are alleviated by nothing, the symptoms are aggravated by nothing. Associated signs and symptoms: The patient has no apparent associated signs or symptoms. Severity of symptoms: At their worst the symptoms were moderate, in the emergency department the symptoms are unchanged. The patient has not experienced similar symptoms in the past. Historical: - PMHx: 08:59 Asthma; enlarged colon; bp - PSHx: 08:59 Circumcision (ed); tubes in Ears (ed); bp - Immunization history:: Adult Immunizations up to date. - Infectious Disease History:: Denies. - Family history:: not pertinent. - Social history:: Smoking status: Patient denies any tobacco usage or history of. ROS: 08:52 Constitutional: Negative for fever, chills, and weight loss, Eyes: Negative for injury, sherita pain, redness, and discharge, ENT: Negative for injury, pain, and discharge, Neck: Negative for injury, pain, and swelling, Cardiovascular: Negative for chest pain, palpitations, and edema, Respiratory: Negative for shortness of breath, cough, wheezing, and pleuritic chest pain, Abdomen/GI: Negative for abdominal pain, nausea, vomiting, diarrhea, and constipation, Back: Negative for injury and pain, MS/Extremity: Negative for injury and deformity, Skin: Negative for injury, rash, and discoloration, Neuro: Negative for headache, weakness, numbness, tingling, and seizure, Psych: Negative for depression, anxiety, suicide ideation, homicidal ideation, and hallucinations, Allergy/Immunology: Negative for hives, rash, and allergies, Endocrine: Negative for neck swelling, polydipsia, polyuria, polyphagia, and marked weight changes, Hematologic/Lymphatic: Negative for swollen nodes, abnormal bleeding, and unusual bruising, 08:52 : Positive for urinary symptoms, urinary frequency, burning with urination, foul smelling urine, penile pain, Exam: 08:52 Constitutional: This is a well developed, well nourished patient who is awake, alert, sherita and in no acute distress. Head/Face: Normocephalic, atraumatic. Eyes: Pupils equal round and reactive to light, extra-ocular motions intact. Lids and lashes normal. Conjunctiva and sclera are non-icteric and not injected. Cornea within normal limits. Periorbital areas with no swelling, redness, or edema. ENT: Nares patent. No nasal discharge, no septal abnormalities noted. Tympanic membranes are normal and external auditory canals are clear. Oropharynx with no redness, swelling, or masses, exudates, or evidence of obstruction, uvula midline. Mucous membranes moist. Neck: Trachea midline, no thyromegaly or masses palpated, and no cervical lymphadenopathy. Supple, full range of motion without nuchal rigidity, or vertebral point tenderness. No Meningismus. Chest/axilla: Normal chest wall appearance and motion. Nontender with no deformity. No lesions are appreciated. Cardiovascular: Regular rate and rhythm with a normal S1 and S2. No gallops, murmurs, or rubs. Normal PMI, no JVD. No pulse deficits. Respiratory: Lungs have equal breath sounds bilaterally, clear to auscultation and percussion. No rales, rhonchi or wheezes noted. No increased work of breathing, no retractions or nasal flaring. Abdomen/GI: Soft, non-tender, with normal bowel sounds. No distension or tympany. No guarding or rebound. No evidence of tenderness throughout. Back: No spinal tenderness. No costovertebral tenderness. Full range of motion. Skin: Warm, dry with normal turgor. Normal color with no rashes, no lesions, and no evidence of cellulitis. MS/ Extremity: Pulses equal, no cyanosis. Neurovascular intact. Full, normal range of motion. Neuro: Awake and alert, GCS 15, oriented to person, place, time, and situation. Cranial nerves II-XII grossly intact. Motor strength 5/5 in all extremities. Sensory grossly intact. Cerebellar exam normal. Normal gait. Psych: Awake, alert, with orientation to person, place and time. Behavior, mood, and affect are within normal limits. 08:52 : CVA tenderness, is absent, Male external genitalia: Patient is not circumisioned. Bladder: is normal, Sexual behavior: the patient is sexually active, and reports a single partner, Vital Signs: 08:58 BP 147 / 94; Pulse 76; Resp 16; Temp 98; Pulse Ox 100% ; bp MDM: 08:50 Medical Screening Exam initiated sherita 08:54 Differential diagnosis: UTI, urinary retention, prostatitis, urethritis. Data reviewed: [facility] vital signs, nurses notes, lab test result(s), urinalysis. Consideration of Admission/Observation Escalation of care including admission/observation considered. I considered the following discharge prescriptions or medication management in the emergency department Medications were administered in the Emergency Department. See MAR. Test considered but Not performed: Labs: no cbc, no cmp. Historians other than the Patient: pt well informed. Care significantly affected by the following chronic conditions: none. 02/07 08:52 Order name: Urinalysis w/ reflexes [facility] 02/07 08:52 Order name: Urine Culture [facility] Administered Medications: 09:24 Drug: Rocephin - Rocephin (cefTRIAXone) IVPB 1 grams IVPB once over 30 mins; (mix in 50 bp mL NS) {Note: GIVEN IM.} Route: IVPB; Infused Over: 30 mins; Site: Other; 09:36 Follow up: IV Status: Completed infusion bp 09:24 Drug: Doxycycline PO 100 mg PO once Route: PO; bp 09:36 Follow up: Response: No adverse reaction bp 09:24 Drug: AZITHromycin PO 1 grams PO once Route: PO; bp 09:36 Follow up: Response: No adverse reaction bp Disposition Summary: 02/08/24 08:55 Discharge Ordered Notes: [facility] Problem: [facility] Symptoms: have improved [facility] Condition: Stable [facility] Diagnosis - Dysuria [facility] - Nonspecific urethritis [facility]up[facility] - With: Private Physician - When: 2 - 3 days - Reason: Recheck today's complaints, Re-evaluation by your physician Discharge Instructions: - Discharge Summary Sheet sherita - Dysuria [facility] - Preventing Sexually Transmitted Infections, Adult [facility] Forms: - Medication Reconciliation Form sherita - Antibiotic Education sherita - Prescription Opioid Use [facility] - Patient Portal Instructions [facility] - Leadership Thank You Letter [facility] Prescriptions: - Doxycycline Hyclate 100 mg Oral Tablet - take 1 tablet ORAL route every 12 hours; 20 tablet; Refills: 0, Product sherita Selection Permitted - Cipro 500 mg Oral Tablet - take 1 tablet ORAL route every 12 hours for 7 days; 14 tablet; Refills: 0, sherita Product Selection Permitted Signatures: Dispatcher [employer] Gagandeep Apple MD MD cha Peltier, Brian, RN RN bp Corrections: (The following items were deleted from the chart) 08:52 08:52 Urinalysis+U.LAB.BRZ ordered. EDMS EDMS 08:52 08:52 Urine Culture+BA.LAB.BRZ ordered. EDMS EDMS
[2024-02-08 09:12] LABS: Specific Gravity 1.026 (1.005-1.030); Sqamous Epithelial <5 /HPF (None Seen); Urine Bacteria None Seen /HPF (<20); Urine Bilirubin NEGATIVE (Negative); Urine Blood Negative (Negative); Urine Clarity Turbid (Clear); Urine Color Yellow (Yellow); Urine Culture Reflex Order NOT NEEDED; Urine Glucose NEGATIVE (Negative); Urine Ketones 1+ (Negative); Urine Microscopic Reflex YN ORDER UMIC; Urine Mucus Slight /HPF (None Seen); Urine Nitrite NEGATIVE (Negative); Urine Protein TRACE (Negative); Urine RBC <5 /HPF (None Seen); Urine Urobilinogen 1+ (Normal); Urine WBC <5 /HPF (<5); Urine WBC Clump Rare /HPF (None Seen); Urine pH 5.5 (5.0-7.0)
[2024-02-08] MEDS ORDERED: CEFTRIAXONE 1000 MG/VIAL ONE (09:16)
[2024-02-08] MEDS ORDERED: DOXYCYCLINE 100 MG CAP PO ONE (09:17)
[2024-02-08] MEDS ORDERED: AZITHROMYCIN 250 MG TAB ONE (09:17)
--- NOTE | 2024-02-08 09:37 | ER ---
Nurse's Notes [facility] Name: Lukasz Edwards Jr Age: 28 yrs Sex: Male : 1995 Arrival Date: 02/08/2024 Time: 08:40 Bed 8 Private MD: Diagnosis: Dysuria;Nonspecific urethritis Presentation: 02/07 08:58 Chief complaint: Patient states: PENILE DISCHARGE SINCE OCTOBER. Coronavirus screen: At bp this time, the client does not indicate any symptoms associated with coronavirus-19. Ebola Screen: No symptoms or risks identified at this time. Initial Sepsis Screen: Does the patient meet any 2 criteria? No. Patient's initial sepsis screen is negative. Does the patient have a suspected source of infection? No. Patient's initial sepsis screen is negative. Risk Assessment: Do you want to hurt yourself or someone else? Patient reports no desire to harm self or others. Onset of symptoms is unknown. 08:58 Method Of Arrival: Ambulatory bp 08:58 Acuity: CHELA 4 bp Triage Assessment: 08:59 General: Appears in no apparent distress. Behavior is cooperative, appropriate for age, bp anxious. Pain: Denies pain. EENT: No deficits noted. Neuro: No deficits noted. Cardiovascular: No deficits noted. Respiratory: No deficits noted. GI: No signs and/or symptoms were reported involving the gastrointestinal system. : Reports discharge, from penis that is. Derm: No deficits noted. Musculoskeletal: No deficits noted. Historical: - PMHx: 08:59 Asthma; enlarged colon; bp - PSHx: 08:59 Circumcision (ed); tubes in Ears (ed); bp - Immunization history:: Adult Immunizations up to date. - Infectious Disease History:: Denies. - Family history:: not pertinent. - Social history:: Smoking status: Patient denies any tobacco usage or history of. Screenin:00 [facility] ED Fall Risk Assessment (Adult) History of falling in the last 3 months, bp including since admission No falls in past 3 months (0 pts) Confusion or Disorientation No (0 pts) Intoxicated or Sedated No (0 pts) Impaired Gait No (0 pts) Mobility Assist Device Used No (0 pt) Altered Elimination No (0 pt) Score/Fall Risk Level 0 - 2 = Low Risk. Abuse screen: Denies threats or abuse. Denies injuries from another. Nutritional screening: No deficits noted. Tuberculosis screening: No symptoms or risk factors identified. Assessment: 09:00 General: Appears in no apparent distress. Behavior is cooperative, appropriate for age, bp anxious. Vital Signs: 08:58 BP 147 / 94; Pulse 76; Resp 16; Temp 98; Pulse Ox 100% ; bp ED Course: 08:45 Patient arrived in ED. sj2 08:49 Wei Edward, RN is Primary Nurse. bp 08:50 Gagandeep Hamm MD is Attending Physician. [facility] 08:59 Triage completed. bp 09:00 Arm band placed on. bp 09:00 Patient has correct armband on for positive identification. Provided Education on: N/A. bp 09:36 No provider procedures requiring assistance completed. Patient did not have IV access bp during this emergency room visit. Administered Medications: 09:24 Drug: Rocephin - Rocephin (cefTRIAXone) IVPB 1 grams IVPB once over 30 mins; (mix in 50 bp mL NS) {Note: GIVEN IM.} Route: IVPB; Infused Over: 30 mins; Site: Other; 09:36 Follow up: IV Status: Completed infusion bp 09:24 Drug: Doxycycline PO 100 mg PO once Route: PO; bp 09:36 Follow up: Response: No adverse reaction bp 09:24 Drug: AZITHromycin PO 1 grams PO once Route: PO; bp 09:36 Follow up: Response: No adverse reaction bp Medication: 09:36 VIS not applicable for this client. bp Outcome: 08:55 Discharge ordered by . [facility] 09:36 Discharged to home ambulatory, bp 09:36 Condition: stable 09:36 Discharge instructions given to patient, Instructed on discharge instructions, follow up and referral plans. medication usage, Demonstrated understanding of instructions, follow-up care, medications, Prescriptions given X 2, 09:37 Patient left the ED. bp Signatures: Gagandeep Hamm MD MD cha Peltier, Brian, RN RN bp Raffaele Triplett sj2
[2024-02-08 18:55] VITALS: BP 147/94; TEMP 98; O2SAT 100
== END 2024-02-08 09:37 | disposition home or self-care (01) ==
LOC: ER 08:40
DX: N34.1 Nonspecific urethritis (principal)
CPT/HCPCS: 81001; 87086; 87088; 96374; 99284; J0696